=== PATIENT | male | born 1955 | race Caucasian/White ===

== ENCOUNTER 2022-05-24 06:20 | Day surgery (SDC) | payer BC ==
[~2022-05-24 06:20] MED LIST: Lactated Ringers 1,000 ML IV SCH; Sodium Chloride 0.9% 10 ML Syringe FLUSH PRN
[2022-05-24] MEDS ORDERED: Propofol 200 MG/20 ML SDV IV ONE (06:21)
[2022-05-24 09:57] VITALS: BP 97/65; PULSE 63
== END 2022-05-24 08:35 | disposition home or self-care (01) ==
LOC: FB.SDS 06:20
PROVIDERS: ATTEND Surgery
DX: Z12.11 Encounter for screening for malignant neoplasm of colon (principal); Z86.010 Personal history of colon polyps; Z79.899 Other long term (current) drug therapy; Z98.890 Other specified postprocedural states
CPT/HCPCS: 00812; 45378; J2704; J7120